=== PATIENT | female | born 1995 | race African-American/Black ===

== ENCOUNTER → 2021-02-03 | Outpatient (CLI) | payer OTHER ==
--- NOTE | 2021-02-04 05:14 | MR ---
EXAMINATION TYPE: MR knee LT wo con DATE OF EXAM: 02/03/2021 COMPARISON: None HISTORY: Left knee pain, painful kneecap, locking, and swelling for 2 years. Multiplanar multiecho imaging of the left knee without contrast. There is moderate size knee joint effusion. The anterior and posterior cruciate ligaments appear to b e intact. The medial and lateral menisci appear intact. There is some mild medial displacement of the medial meniscus. There is hypertrophic spurring of the medial femoral and tibial condyles. There is some thickening and increased signal in the medial collateral ligament. The lateral collateral ligame nt appears intact. There is small area of edema in the medial aspect medial tibial condyle. I see no fracture line. The patella is intact. IMPRESSION: Large knee joint effusion. No definite meniscal tear. There is evidence of tear of the medial collate ral ligament with bone bruise of the medial tibial condyle. Osteoarthritic changes in the medial join t space with spurring of the femoral and tibial condyles.
== END | disposition home or self-care (01) ==
LOC: RADMRIMAIN 14:56
PROVIDERS: ATTEND Orthopaedic Surgery
DX: S83.412A Sprain of medial collateral ligament of left knee, initial encounter (principal); S80.12XA Contusion of left lower leg, initial encounter; M25.469 Effusion, unspecified knee; M17.12 Unilateral primary osteoarthritis, left knee; X58.XXXA Exposure to other specified factors, initial encounter